=== PATIENT | male | born 2005 | race Caucasian/White ===

== ENCOUNTER 2024-11-15 15:01 | Emergency (ER) | payer SELFPAY ==
[2024-11-15] VITALS (14 sets, daily range): BP systolic 114–132; BP diastolic 75–92; PULSE 57–91; RESP 13–20; TEMP 35.8; O2SAT 93–99; BMI 22.4
--- OUTSIDE RECORDS SUMMARY | 2024-11-15 15:03 | XMS_ITS | Clinical Summary ---
Author Organization [facility] Address [address] [place] [id number] Care Team Providers Care Architectural Engineering Teacher Name Role Phone Juan Brizuela MD Primary Care Provider [phone] Allergies Active Allergy Reactions Criticality Noted Date Comments Pollen Extracts Itching 11/22/2017 Medications clindamycin 1% (CLEOCIN-T) 1 % lotion APPLY THIN LAYER TO ENTIRE FACE ONCE DAILY. 11/09/2021 Active albuterol HFA (PRO-AIR; VENTOLIN; PROVENTIL) 90 mcg/actuation inhalerIndicatio ns:Wheezing Inhale 1-2 Puffs by mouth every 4 hours if needed for Wheezing. 1 Each 3 04/09/2022 Active Active Problems No known active problems Immunizations Immunization Administration Dates Next Due DTP 07/28/2007, 5,01/20/2004,10/31,2003 HPV 9 (Gardasil 9) 02/17/2019,11/22/2017 Hepatitis A (Peds) 04/19/2009,12/11/2007 Hepatitis B (Peds) 06/29/2004,2003, 004 Hib Conjugate, Unspecified 06/29/2004,2003 ,2003 Inactivated Polio Vaccine 07/28/2007,,2003,09/06 Influenza A (H1N1), Live Intranasal 04/19/2009,1 05/20/2008 Influenza, IIV4 02/17/2019, 5,04/27/2014,05/27,04/29/2012 MENINGOCOCCAL VACCINE 2 VIAL [id number] (MENVEO) 11/18/2020,01/18/2015 MMR 12/11/2007,06/29/2004 Pneumococcal, Unspecified 06/29/2004,10/2003,2003,09/06 Tdap 01/18/2015 Varicella Vaccine 12/11/2007,07/03/2005 Social History Tobacco Use Types Packs/Day Years Used Date Smoking Tobacco: Never Smokeless Tobacco: Never Tobacco Cessation:Counseling Given: Yes Alcohol Use Standard Drinks/Week Comments No 0 (1 standard drink = 0.6 oz pur e alcohol) PHQ-2 Answer Date Recorded PHQ-2 TOTAL SCORE 0 11/20/2021 Financial Resource Strain Answer Date R ecorded Difficulty of Paying Living Expenses Not on file 04/15/2021 Difficulty of Paying Living Expenses Not on file 04/15/2021 Sex and Gender Information Value Date Recorded Sex Assigned at Not on file Legal Sex Male 2:11 PM CDT Gender Identity Not on file Sexual Orientation Not on file Obstetrics History Last Filed Vital Signs Vital Sign Reading Time Taken Comments Blood Pressure 110/72 11/20/2021 8:49 AM CDT Pulse 56 11/20/2021 8:49 AM CDT Temperature 36.3 C (97.3 F) 11/20/2021 8:49 AM CDT Respiratory Rate - - Oxygen Saturation 97% 11/20/2021 8:49 AM CDT Inhaled Oxygen Concentration - - Weight 70.3 kg (155 lb) 03/27/2024 2:00 PM [employer] Height 177.8 cm (5' 10) 03/27/2024 2:00 PM [employer] Body Mass Index 22.24 03/27/2024 2:00 PM [employer] Plan of Treatment Health Maintenance Due Date Last Done Comments HIV for age 15-65 06/27/2018 Hepatitis C screening for age 18-79 06/27/2021 Depression screening for age 12+ 11/20/2022 11/20/2021, 11/18/2020, 11/22/2017 COVID-19 vaccine series ( season) 2023 08/09/2020, 07/19/2020 Influenza Vaccine (#1) 2024 9, 01/18/2015, 04/27/2014, Additional history exists Tetanus booster 01/18/2025 01/18/2015 BMI (ht and wt on same day) for age 18+ 03/27/2025 03/27/2024, 11/20/2021 Hepatitis B series for 19+ Completed 06/29, 2003, 2003 Pneumococcal series for age 6-49 Aged Out 06/29/2004, 01/20/2004, 2003, Additional history exists No longer eligible based on patient's age to complete this topic HPV series for age 9-26 Completed 02/17/2019, 11/22 Meningococcal series for age 11-21 Completed 11/18/2020, 01/18/2015 Insurance [employer] [id number] [id number] Care Teams Architectural Engineering Teacher Relationship Specialty Start Date End Date Juan Brizuela MD [address] [place] [address] PCP - General Family Practice 04/09/22
--- NOTE | 2024-11-15 15:05 | ED_ITS ---
HPI - Extremity Injury (Upper) General Time Seen by Provider: 15:05 Date Seen: 11/15/24 Chief Complaint: Extremity Pain/Injury, Upper Stated Complaint: L shoulder dislocation Time Seen by Provider: 11/15/24 15:03 Source: patient and RN notes reviewed Mode of arrival: ambulatory Limitations: no limitations History of Present Illness HPI narrative: This 19-year-old male is coming in accompanied by his parents with left shoulder injury. He has dislocated it before, does have a labral tear per report per his dad. He feels best if somebody holds his elbow and arm level with his shoulder. He was sliding into the base and feels he dislocated the shoulder. He did not hit his head, no head injury, no neck pain. He denies any numbness tingling in the arm. He initially felt short of breath but thinks it was just the injury. He is having no breathing problems now. Related Data Home Medications ?Medication ?Instructions ?Recorded ?Confirmed No Known Home Medications 11/15/24 0807/07 Allergies Allergy/AdvReac Type Severity Reaction Status Date / Time No Known Drug Allergies Allergy Verified 11/26/23 09:06 Review of Systems Narrative: As per HPI. Exam Const: Vital Signs, click to edit/add: Vital Signs - 24 hr 11/15/24 15:05 11/15/24 15:11 11/15/24 15:12 Temperature 96.5 F L Pulse Rate 86 84 Pulse Rate [Pulse Oximeter] 91 Respiratory Rate 20 Blood Pressure 114/77 Blood Pressure [Le ft Upper Arm] 114/77 Pulse Oximetry 96 95 96 Oxygen Delivery Me thod Room Air Oxygen Flow Rate 11/15/24 15:15 11/15/24 15:30 11/15/24 15:39 Temperature Pulse Rate 85 76 63 Pulse Rate [Pulse Oximeter] Respiratory Rate 13 Blood Pressure 132/92 H Blood Pressure [Le ft Upper Arm] Pulse Oximetry 96 93 96 Oxygen Delivery Me thod Oxygen Flow Rate 11/15/24 15:45 11/15/24 15:47 11/15/24 15:47 Temperature Pulse Rate 60 62 Pulse Rate [Pulse Oximeter] Respiratory Rate 19 16 Blood Pressure 132/90 H Blood Pressure [Le ft Upper Arm] Pulse Oximetry 96 97 97 Oxygen Delivery Me thod Nasal Cannula Oxygen Flow Rate 2 11/15/24 15:48 11/15/24 16:00 08/03/25 16:01 Temperature Pulse Rate 57 L 60 90 Pulse Rate [Pulse Oximeter] Respiratory Rate 14 Blood Pressure 129/75 Blood Pressure [Le ft Upper Arm] Pulse Oximetry 97 99 98 Oxygen Delivery Me thod Oxygen Flow Rate 11/15/24 16:04 11/15/24 16:15 11/15/24 16:17 Temperature Pulse Rate 84 72 68 Pulse Rate [Pulse Oximeter] Respiratory Rate Blood Pressure 131/75 118/83 Blood Pressure [Le ft Upper Arm] Pulse Oximetry 97 97 98 Oxygen Delivery Me thod Oxygen Flow Rate This 19-year-old male is alert, interactive, looks to be in pain. His dad is help holding his arm in front of him, level with his elbow. You can feel a sulcus in the posterior part of the glenohumeral joint. He has a good radial pulse, can feel his fingers fine. Face atraumatic, able speak without difficulty. Clavicle seems to be nontender. Lungs are clear, good air entry, wheezing crackles. CV regular rate and rhythm, no murmur, normal S1-S2. Documenting provider has reviewed patient's vital signs: yes Course Course ED Course: Patient has clinical evidence of shoulder dislocation. Will x-ray to confirm and make sure there is no underlying fracture. Will have nursing staff place an IV, give him some fentanyl for pain management, we will set up for conscious sedation. Will premedicate with Zofran to prevent any nausea. Reevaluation(s) Time of Reevaluation #1: 15:22 Reevaluation #1: Reviewed his preliminary x-ray, x-ray looks to be consistent with a anterior dislocation like his clinical exam. Nursing staff will set him up in prepare for conscious sedation for joint reduction. Time of Reevaluation #2: 16:03 Reevaluation #2: Completed shoulder reduction with conscious sedation. Dr. Enciso was here to jonnathan villar. Patient did end up getting the full 200 mg propofol fall to achieve sedation. Respiratory therapy was in attendance as well. It did take Dr. Enciso and I both assisting for the shoulder reduction. Post imaging looks like there is resolution of the dislocation in the glenohumeral joint. I do not see any evidence of acute fracture. Patient will be recovered per post sedation protocol. Time of Reevaluation #3: 16:42 Reevaluation #3: Patient is ready to discharge, no numbness tingling, neurovascular intact, arm in sling. Has met post sedation criteria for discharge. Vital Signs Vital signs: Initial Vital Signs Temperature 96.5 F L 11/15/24 15:05 Temperature Source Temporal Artery Scan 11/15/24 15:05 Pulse Rate 91 11/15/24 15:05 Respiratory Rate 20 11/15/24 15:05 Blood Pressure 114/77 11/15/24 15:05 Blood Pressure Mean 89 11/15/24 15:05 Blood Pressure Position Sitting 11/15/24 15:05 Pulse Oximetry 96 11/15/24 15:05 Oxygen Delivery Method Room Air 11/15/24 15:05 Vital Signs Temperature 96.5 F L 11/15/24 15:05 Pulse Rate 91 11/15/24 15:05 Respiratory Rate 20 11/15/24 15:05 Blood Pressure 114/77 11/15/24 15:05 Pulse Oximetry 96 11/15/24 15:05 Oxygen Delivery Method Room Air 11/15/24 15:05 Temperature 96.5 F L 11/15/24 15:05 Pulse Rate 68 11/15/24 16:17 Respiratory Rate 14 11/15/24 15:48 Blood Pressure 118/83 11/15/24 16:17 Pulse Oximetry 98 11/15/24 16:17 Oxygen Delivery Method Nasal Cannula 11/15/24 15:47 Oxygen Flow Rate 2 11/15/24 15:47 Medications Administered Medications: Discontinued Medications Generic Name Dose Route Start Last Admin Trade Name Freq PRN Reason Stop Dose Admin Fentanyl 50 mcg 11/15/24 15:14 11/15/24 15:23 Fentanyl 100 Mcg/2 Ml Inj IVP 11/15/24 15:15 50 mcg ONCE ONE Administration Ondansetron HCl 4 mg 11/15/24 15:14 11/15/24 15:23 Ondansetron 2 Mg/Ml Inj IVP 11/15/24 15:15 4 mg ONCE ONE Administration Propofol 200 mg 11/15/24 15:23 11/15/24 16:15 Propofol 10 Mg/Ml Inj IVP 11/15/24 15:24 200 mg ONCE ONE Administration MDM - Extremity Injury (Upper) Imaging Data XR left shoulder: Attestation: I have reviewed the pertinent imaging results. My impression: Did visualize images on the portable machine, anterior dislocation is appreciated on my preliminary review, do not see a fracture. Radiologist's impression: Patient: ALONSO GOODE Facility:?[facility] Patient ID:?[id number] Site Patient ID:?[id number]. Site :?2003 Study:?XRay-Shoulder Left 1 VIEW-11/15/2024 3:25:51 PM Ordering Physician:?Quique Saavedra Final Report: Indication: pain, baseball injury, history of dislocations Technique: One view of the left shoulder Comparison: None Findings/Impression: Anterior shoulder dislocation. No fracture. No suspicious osseous lesions. The soft tissues are unremarkable. Dictated by Nolan Allison MD @ 11/15/2024 4:01:30 PM (Electronic Signature) XR post reduction: Attestation: I have reviewed the pertinent imaging results. My impression: Did visualize image on portable machine, looks to be and tonically reduce without fracture. Await Radiology over-read. Radiologist's impression: Patient: ALONSO GOODE Facility:?[facility] Patient ID:?[id number] Site Patient ID:?[id number]. Site :?2003 Study:?XRay-Shoulder Left 1V-11/15/2024 4:07:38 PM Ordering Physician:?Quique Saavedra Final Report: Indication: POST REDUCTION Technique: One view of the left shoulder Comparison: Same-day left shoulder radiograph Findings/Impression: Successful reduction of the previously imaged left anterior shoulder dislocation, with shoulder alignment now anatomic. No fracture. Dictated by Nolan Allison MD @ 11/15/2024 4:24:13 PM (Electronic Signature) Discharge Plan Discharge Clinical Impression: Anterior shoulder dislocation Qualifiers: Encounter type: initial encounter Laterality: left Qualified Code(s): S43.015A - Anterior dislocation of left humerus, initial encounter Patient Disposition: Home, Self-Care Condition: Stable Instructions: Shoulder Dislocation (ED) Additional Instructions: Keep your arm in the sling for comfort, do not attempt to do any overhead movement with your arm. Can use ice to the arm for the next couple days to help decrease any swelling or discomfort. Can use Tylenol and ibuprofen as needed for pain, follow bottle directions for dosing. Do recommend follow up with Orthopedics as soon as possible, can call [phone] to get scheduled. They may recommend a follow-up MRI but will leave this to their discretion. Prescriptions: No Action No Known Home Medications Follow Up/Referrals: Ramsey Steward MD [Primary Care Provider, Family Practice] Stand Alone Forms: [employer] Info Instructions
--- NOTE | 2024-11-15 15:14 | CRLHL7_ITS ---
For Patients: As a result of the Cures Act, medical imaging exams and procedure reports are released immediately into your electronic medical record. You may view this report before your referring provider. If you have questions, please contact your health care provider. Indication: pain, baseball injury, history of dislocations Technique: One view of the left shoulder Comparison: None Findings/Impression: Anterior shoulder dislocation. No fracture. No suspicious osseous lesions. The soft tissues are unremarkable. Dictated by Nolan Allison MD @ 11/15/2024 4:01:30 PM (Electronically Signed)
[2024-11-15] MEDS: ONDANSETRON 2 MG/ML inj 4 MG IVP (15:23)
--- NOTE | 2024-11-15 15:55 | CRLHL7_ITS ---
For Patients: As a result of the Century Cures Act, medical imaging exams and procedure reports are released immediately into your electronic medical record. You may view this report before your referring provider. If you have questions, please contact your health care provider. Indication: POST REDUCTION Technique: One view of the left shoulder Comparison: Same-day left shoulder radiograph Findings/Impression: Successful reduction of the previously imaged left anterior shoulder dislocation, with shoulder alignment now anatomic. No fracture. Dictated by Nolan Allison MD @ 11/15/2024 4:24:13 PM (Electronically Signed)
--- NOTE | 2024-11-15 16:05 | RESP.RT ---
Airway assist for shoulder reduction.
[2024-11-15] MEDS: PROPOFOL 10 MG/ML INJ 200 MG IVP (16:15)
== END 2024-11-15 17:05 | disposition home or self-care (01) ==
LOC: ED 17:06
PROVIDERS: Emergency Provider Family Medicine; PCP Surgery
DX: S43.015A Anterior dislocation of left humerus, initial encounter (principal); X50.1XXA Overexertion from prolonged static or awkward postures, initial encounter
CPT/HCPCS: 23655; 73020; 94761; 96374; 96375; 99156; 99284; 99285; J2405; J2704; J3010